=== PATIENT | male | born 2000 | race Caucasian/White ===

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

== ENCOUNTER 2021-06-13 15:14 | Outpatient (REF) | payer OTHER, SELFPAY ==
[2021-06-15 13:07] LABS: COVID-19 RT-PCR UVMMC Result Positive (Negative)
== END 2021-06-13 15:15 | disposition home or self-care (01) ==
LOC: NCHCN 15:14
PROVIDERS: PCP Physician Assistant Medical; Visit Provider Physician Assistant Medical
DX: Z20.822 Contact with and (suspected) exposure to COVID-19 (principal); J06.9 Acute upper respiratory infection, unspecified
CPT/HCPCS: U0003

== ENCOUNTER 2022-04-06 14:38 | Emergency (ER) | payer OTHER, SELFPAY ==
[2022-04-06 15:00] VITALS: BP 120/67; PULSE 71; RESP 12; TEMP 37.1; O2SAT 100
--- NOTE | 2022-04-06 15:00 | DI.US_ITS ---
Exam(s) US SCROTUM EXAM: US SCROTUM CLINICAL HISTORY: R/O Torsion TECHNIQUE: Ultrasound performed using standard protocol. COMPARISON: US LEFT BREAST ULTRASOUND {[id number]} from 03/11/2015 FINDINGS: Scrotal ultrasound was performed according to the usual protocol. Testes show normal homogeneous ech ogenicity and normal Doppler flow bilaterally. The epididymi are unremarkable in appearance. No mauri icocele identified. IMPRESSION: Negative scrotal ultrasound. DATA REPOSITORY:
--- NOTE | 2022-04-06 16:46 | ED.GENADUL_ITS ---
Discharge Plan Disposition Patient Disposition: HOME Condition: Stable Discharge Details Clinical Impression: Pain in scrotum Primary Care Provider: Ela Kumar ED Provider: Precious Hebert Home Meds and New Rx's Prescriptions: New doxycycline hyclate 100 mg tablet 100 mg PO BID 10 Days Qty: 20 0RF Discharge Instructions Additional Instructions: you received antibiotics to treat epididymitis, please follow-up with your doctor and urology, should you have persistent pain motrin/tylenol as needed for pain oxycodone is addictive, please use sparingly return with new or worsening complaints wear briefs for support refrain from heavy lifting Referrals: Ela Kumar PA [Primary Care Provider] - Discharge Data Discharge Date/Time-TO BE ENTERED AT DEPARTURE: 04/06/22 17:28 Medical Decision Making Patient has tenderness to his right testicle without significant swelling or erythema I do not feel a palpable hernia We will treat empirically for epididymitis with doxycycline and ceftriaxone He has a urine swabs are pending at this time and for gonorrhea and chlamydia although he was treated empirically with 500 mg of ceftriaxone and p.o. doxycycline for the next 10 days He is given a small amount of opiate analgesia will return immediately should he have new or worsening complaints Medical Records Medical records reviewed: Yes I reviewed the patient's medical records. Lab Data Lab results reviewed: Yes I reviewed the patient's lab results. HPI General Date/Time Provider Initiated Documentation: 04/06/22 15:13 . HPI Narrative: This 22-year-old male presents with right scrotal pain that started approximately 3 days ago. He sexually active and monogamous over the course of the past 6 months Just prior history of similar symptoms in the past or trauma to the affected area. If he has pain with ambulation. He denies any urethral discharge. He denies any flank pain, chest pain, shortness of breath. He denies any dysuria frequency. Any fever or chills denies fever or chills describes the pain as an achy Related Data Home Medications Medication Instructions Recorded Confirmed doxycycline hyclate 100 mg tablet 100 mg PO BID 10 days #20 tabs 04/06/22 Previous Rx's Medication Instructions Recorded doxycycline hyclate 100 mg tablet 100 mg PO BID 10 days #20 tabs 04/06/22 Allergies Allergy/AdvReac Type Severity Reaction Status Date / Time No Known Allergies Allergy Unverified 04/06/22 15:07 General Stated Complaint: Male Reproductive Problem JUAN: 3 Review of Systems All systems reviewed & are unremarkable except as noted in HPI and below PFSH All Active Problems (Updated 04/06/22 @ 16:50 by JOSE MANUEL Pryor) Pain in scrotum (Acute) Asymmetrical sensorineural hearing loss (Acute) Medical History Depression Hearing impairment URI, acute Social History Smoking/Tobacco Use Status: Never Smoking risk assessment performed?: Yes Alcohol Intake: never Drug use: Never Pets and animals: Yes Do you feel safe at home: Yes Do you feel safe in your relationship?: Yes Exam Const General: cooperative, comfortable and no acute distress Resp Effort & Inspection: normal respiratory effort Cardio Rate: regular rate GI Inspection: normal to inspection Other: Right testicular tenderness, no erythema, no palpable hernia, no urethral or scrotal lesions, no drainage Course Vital Signs Vital signs: Vital Signs Temperature 37.1 C 04/06/22 15:00 Pulse 71 04/06/22 15:00 Respiratory Rate 12 04/06/22 15:00 Blood Pressure 120/67 04/06/22 15:00 Pulse Oximetry 100 04/06/22 15:00 Temperature 37.1 C 04/06/22 15:00 Temperature Source Skin 04/06/22 15:00 Pulse 71 04/06/22 15:00 Respiratory Rate 12 04/06/22 15:00 Respiratory Effort 04/06/22 16:33 Blood Pressure 120/67 04/06/22 15:00 Blood Pressure Position Sitting 04/06/22 15:00 Pulse Oximetry 100 04/06/22 15:00 Oxygen Delivery Method Room Air 04/06/22 15:00 Oxygen Flow Rate 0 04/06/22 15:00 Pain Level 6 04/06/22 15:00 Comment 04/06/22 15:00
[2022-04-06 16:48] LABS: Bilirubin Negative (Negative); Blood Negative (Negative); Clarity Clear (Clear); Glucose Negative (Negative); Ketones 15 mg/dL (Negative); Leukocyte Esterase Negative (Negative); Nitrite Negative (Negative); Specific Gravity >= 1.030 (1.005-1.025); Urobilinogen 0.2 EU/dL (Up TO 0.2); pH 5.5 (5-8)
[2022-04-06] MEDS: cefTRIAXone 500 MG VIAL IM (17:08)
[2022-04-06 17:26] VITALS: PULSE 77; TEMP 37.2; O2SAT 99
[2022-04-08 13:39] LABS: Chlamydia Result Positive (Negative); GC Result Negative (Negative)
--- NOTE | 2022-04-08 13:57 | W.ED.FU ---
Date of service: 04/08/22 Time of Service: 13:57 Follow Up Plan: Critical value of positive chlamydia from sample. Patient was given ceftriaxone and doxycycline for presumed epididymitis. Lab findings conveyed to patient. Patient is taking his antibiotics appropriately and will follow up with primary care. Given return precautions to the emergency department as needed
== END 2022-04-06 17:28 | disposition home or self-care (01) ==
PROVIDERS: Emergency Provider Physician Assistant; PCP Physician Assistant Medical
DX: N50.82 Scrotal pain (principal)
CPT/HCPCS: 87491; 87591; 96372; 99284; 76870; 81003; J0696

== ENCOUNTER 2022-07-03 12:06 | Emergency (ER) | payer OTHER, SELFPAY ==
[2022-07-03 12:17] VITALS: BP 117/63; PULSE 80; RESP 16; TEMP 36.6; O2SAT 99
--- NOTE | 2022-07-03 12:37 | DI.RAD_ITS ---
Exam(s) XR FOOT LT COMPLETE EXAM: XR FOOT LT COMPLETE CLINICAL HISTORY: crush injury/pain. TECHNIQUE: 2D digital imaging was performed. Three views. COMPARISON: No exams were available for comparison FINDINGS: BONES: There is a nondisplaced fracture extending from the mid shaft of the 4th metatarsal with throu gh the base. There is no visible separation at the articular surface. No additional fractures are s een. No bony destructive lesion is seen. JOINTS: No dislocation present. SOFT TISSUE: Mild swelling over the metatarsal region. IMPRESSION: Nondisplaced fracture 4th metatarsal. DATA REPOSITORY: RADIATION DOSE DELIVERED:
--- NOTE | 2022-07-03 13:06 | ED.GENADUL_ITS ---
Discharge Plan Disposition Patient Disposition: Home Condition: Stable Discharge Details Clinical Impression: Metatarsal fracture Primary Care Provider: Ela Kumar ED Provider: Francisca Gary Home Meds and New Rx's Prescriptions: No Action No Known Home Meds Discharge Instructions Instructions: Foot Fracture in Adults (ED), Walking Boot (ED) Additional Instructions: Please return immediately to the emergency department if you develop any new or worsening symptoms, if your condition does not improve as expected, or if you become otherwise concerned. It is extremely important that you call soon as possible to make an appointment to be seen in follow-up for this visit by your primary care doctor. You will also need to follow-up with orthopedic surgery in 2 to 3 weeks as we discussed. Stand Alone Forms: Work Release Referrals: Jeremy Narvaez MD [[facility] STAFF PHYSICIAN] - Ela Kumar PA [Primary Care Provider] - Discharge Data Discharge Date/Time-TO BE ENTERED AT DEPARTURE: 07/03/22 13:38 Medical Decision Making Concern for foot fracture versus contusion. Exam/history at this time is not consistent with ankle fracture, acute pathology of the left lower extremity otherwise, other acute emergent pathology. Plan for foot x-ray. X-ray shows nondisplaced fracture of the fourth metatarsal. I discussed patient presentation results with Dr. Narvaez of orthopedic surgery, who requested either postop shoe or walking boot, weightbearing as tolerated, outpatient follow-up in 2 to 3 weeks with orthopedics. Patient with last tetanus 9 years ago, offered to give booster at this time, patient declines. Abrasion dressed with bacitracin, patient provided with walking boot and crutches for weightbearing as tolerated. I had a discussion with Patient regarding return to emergency department precautions, home care, and importance of outpatient follow-up. Pt verbalizes understanding of the plan and is amenable. Patient discharged to home with clear plan for outpatient follow-up. All questions were answered. Disposition decision was made weighing the risks and benefits of hospitalization versus outpatient treatment, the risk for further decompensation, and the patient's wishes. Medical Records Medical records reviewed: Yes I reviewed the patient's medical records. Imaging Data Radiologic Study: Attestation: I personally reviewed and interpreted this imaging study as follows: Radiologist's impression: EXAM:? XR FOOT LT COMPLETE CLINICAL HISTORY: ? crush injury/pain.? TECHNIQUE:? 2D digital imaging was performed.? Three views. COMPARISON:? No exams were available for comparison FINDINGS: BONES: There is a nondisplaced fracture extending from the mid shaft of the 4th metatarsal with through the base.? There is no visible separation at the articular surface.? No additional fractures are seen.? No bony destructive lesion is seen. JOINTS: No dislocation present. SOFT TISSUE: Mild swelling over the metatarsal region. IMPRESSION: Nondisplaced fracture 4th metatarsal. Sign Out No HPI General Mode of arrival: ambulatory . Date/Time Provider Initiated Documentation: 07/03/22 13:06 . Limitations to Documentation: no limitations . Information obtained by: patient, RN notes reviewed and old records reviewed . HPI Narrative: Tr Clayton is a 22-year-old man without reported history of medical problems presenting to the emergency department with foot pain. 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 Patient reports pain is worse on the top lateral aspect. He reports a feeling of numbness in his distal foot. He denies any other pain, any other injury. Did not fall to the ground, did not hit his head. Rock was removed rapidly by an excavator. Denies recent illness. No fever, cough, shortness of breath, vomiting, diarrhea, weakness, other numbness. Related Data Home Medications Medication Instructions Recorded Confirmed Unknown [No Known Home Meds] 07/03/22 07/03/22 Allergies Allergy/AdvReac Type Severity Reaction Status Date / Time No Known Allergies Allergy Unverified 07/03/22 12:20 General Stated Complaint: Orthopedic JUAN: 4 Review of Systems Narrative: Constitutional: denies fevers Eyes: denies eye pain ENT: denies ear pain, dental pain, sore throat Cardiovascular: denies chest pain Respiratory: denies SOB GI: denies abdominal pain, vomiting : denies flank pain MSK: denies back pain, neck pain, arthralgias, reports left foot pain Skin: denies skin wound Neuro: denies headaches, weakness, reports numbness left toes PFSH All Active Problems Metatarsal fracture (Acute) Asymmetrical sensorineural hearing loss (Acute) Medical History Depression Hearing impairment URI, acute Social History Smoking/Tobacco Use Status: Current every day Tobacco Type: smokeless tobacco Smoking risk assessment performed?: Yes Alcohol Intake: never Drug use: Never Pets and animals: Yes Do you feel safe at home: Yes Do you feel safe in your relationship?: Yes Exam Narrative Exam Narrative: Constitutional: well and [id number], pleasant, conversing normally HENT: head atraumatic/normocephalic/normal inspection, mucous membranes moist Eyes: conjunctiva normal, sclera normal, pupils 3mm b/l Neck: no stridor, normal ROM, trachea midline Resp: normal work of breathing Cardio: normal rate, normal rhythm Skin: warm, dry, normal color, no rash Neuro: alert, not altered, grossly non-focal, normal tone Ext: Left foot with superficial abrasion over proximal dorsal area, tenderness to palpation over dorsal lateral aspect of the foot, ranging all toes with minimal pain, sensation intact distal foot/toes, able to range ankle fully with minimal pain, no ankle tenderness palpation Psych: normal mood, normal affect, normal behavior Course Vital Signs Vital signs: Vital Signs Temperature 36.6 C 07/03/22 12:17 Pulse 80 07/03/22 12:17 Respiratory Rate 16 07/03/22 12:17 Blood Pressure 117/63 07/03/22 12:17 Pulse Oximetry 99 07/03/22 12:17 Temperature 36.6 C 07/03/22 12:17 Temperature Source Skin 07/03/22 12:17 Pulse 80 07/03/22 12:17 Respiratory Rate 16 07/03/22 12:17 Respiratory Effort Non-Labored 07/03/22 12:20 Blood Pressure 117/63 07/03/22 12:17 Blood Pressure Position Sitting 07/03/22 12:17 Pulse Oximetry 99 07/03/22 12:17 Oxygen Delivery Method Room Air 07/03/22 12:17 Oxygen Flow Rate 0 07/03/22 12:17 Pain Level 7 07/03/22 12:17
== END 2022-07-03 13:38 | disposition home or self-care (01) ==
PROVIDERS: Emergency Provider Student in an Organized Health Care Education/Training Program; PCP Physician Assistant Medical
DX: S92.345A Nondisplaced fracture of fourth metatarsal bone, left foot, initial encounter for closed fracture (principal); W23.0XXA Caught, crushed, jammed, or pinched between moving objects, initial encounter
CPT/HCPCS: 29515; 99283; 73630

== ENCOUNTER → 2023-09-25 01:20 | Outpatient (CLI) | payer OTHER, SELFPAY ==
--- NOTE | 2023-09-25 07:30 | DI.MRI_ITS ---
Exam(s) MR IAC BRAIN WO/W EXAM: MR IAC BRAIN WO/W CLINICAL HISTORY: Asymmetrical hearing loss, tinnitus,h90.3,h93.19. TECHNIQUE: Multiplanar multisequence MRI of the brain and internal auditory canals was performed. CONTRAST MATERIAL: IV Contrast: 16 mL of Dotarem contrast administered. COMPARISON: No exams were available for comparison FINDINGS: VENTRICLES AND EXTRA AXIAL SPACES: Normal in size and morphology for the patient's age. HEMORRHAGE: None. CEREBRAL PARENCHYMA: No focus of restricted diffusion to suggest acute infarct. No space-occupying le sergey identified. Nonspecific mild hyperintense T2 signal is seen in the medial aspect of the right oc cipital lobe. No abnormal enhancement or mass effect is seen. MIDLINE SHIFT: None. BRAINSTEM/CEREBELLUM: Normal. CALVARIUM: Normal. ENHANCEMENT: No suspicious enhancement identified. VISUALIZED PARANASAL SINUSES/MASTOIDS: Clear. P[place] K[place]Z: Normal flow void. PITUITARY GLAND: Unremarkable. IAC/CP ANGLE: The internal auditory canals are within normal limits. The cerebellar pontine angles ar e unremarkable. No enhancing lesions are seen. Visualized portion of the facial nerves appear within normal limits. OTHER FINDINGS: None. IMPRESSION: 1. No evidence of an intracranial mass, enhancing lesion or infarct. 2. No evidence of a mass is seen in the internal auditory canals or cerebellopontine angles. 3. Nonspecific hyperintense T2 signal seen in the medial aspect of the right occipital lobe. This ana luisa ws no enhancement. Follow-up examination in 6 months is recommended for re-evaluation. DATA REPOSITORY:
[2023-09-25] MEDS: Normal Saline Flush 10 ML SYR IVP (12:51)
[2023-09-25] MEDS: Gadoterate meglumine 20 ML SYRINGE 16 ML IVP (12:53)
== END ==
PROVIDERS: Visit Provider Registered Nurse Maternal Newborn
DX: H90.3 Sensorineural hearing loss, bilateral (principal); H93.19 Tinnitus, unspecified ear
CPT/HCPCS: 70553

== ENCOUNTER 2024-01-22 16:17 | Outpatient (REF) | payer OTHER, SELFPAY ==
[2024-01-24 15:44] LABS: Chlamydia Result Negative (Negative); GC Result Negative (Negative)
== END 2024-01-22 16:18 | disposition home or self-care (01) ==
LOC: LBN 16:17
PROVIDERS: Visit Provider Physician Assistant
DX: N39.0 Urinary tract infection, site not specified (principal); Z11.3 Encounter for screening for infections with a predominantly sexual mode of transmission
CPT/HCPCS: 87491; 87591; 87086

== ENCOUNTER 2024-04-04 00:20 | Outpatient (CLI) | payer OTHER, SELFPAY ==
--- OUTSIDE RECORDS SUMMARY | 2024-04-04 00:37 | XMS_ITS | Clinical Summary ---
Author Organization [facility] [place] [address] Care Team Providers Care Mineral Mixer Name Role Phone Ela Kumar Primary Care Provider [phone] Allergies No known active allergies Medications Medication Sig Dispensed Refills Start Date End Date Status FLUoxetine (PROZAC) 20 mg Capsule 5 06/04/2018 Active multivitamin Tablet, Chewable Take by mouth. Active Social History Tobacco Use Types Packs/Day Years Used Date Smoking Tobacco: Never Smokeless Tobacco: Never Sex and Gender Information Value Date Recorded Sex Assigned at Not on file Gender Identity Not on file Sexual Orientation Not on file Last Filed Vital Signs Vital Sign Reading Time Taken Comments Blood Pressure 120/64 09/12/2018 2:25 PM EST Pulse 57 09/12/2018 2:25 PM EST Temperature - - Respiratory Rate 18 09/12/2018 2:25 PM EST Oxygen Saturation - - Inhaled Oxygen Concentration - - Weight 74.6 kg (164 lb 6.4 oz) 09/12/2018 2:25 P M EST Height 190.5 cm (6' 3) 09/12/2018 2:25 PM EST Body Mass Index 20.55 09/12/2018 2:25 PM EST Plan of Treatment Health Maintenance Due Date Last Done Comments HPV vaccine (1 - Male 3-dose series) 02/16/2016 HIV screen 2019 Hepatitis C Screening 2019 Hepatitis B vaccine (0-59 yrs) (1) 02/16/2020 Tdap adult 02/16/2020 Tetanus vaccine 02/16/2020 Covid-19 Vaccine (1 - 2022-24 season) 2023 Influenza (Flu) vaccine (1 o f 1 - Influenza standard series) 04/13/2024 Care Teams Mineral Mixer Relationship Specialty Start Date End Date Ela Kumar PA [address] [place], [place] [id number] PCP - General Family Medicine 10/23/23
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
--- OUTSIDE RECORDS SUMMARY | 2024-04-04 00:37 | XMS_ITS | Encounter Summary ---
[place] [address] Care Team Providers Care Straight Cutter Machine Name Role Phone Ela Kumar Primary Care Provider [phone]- [phone] Reason for Referral * Consultation (Routine) - Closed Specialty Diagnoses / Procedures Referred By Malvin cox Referred To Contact Neurology Diagnoses Abnormal findings on diagnostic imaging of other specified body structures Tinnitus, bilateral Sensorineural hearing loss, bilateral 23 yo male with abnormal finding on MRI, completed at [facility]. MRI was completed for asymmetrical sensorineural hearing loss and high-pitched, nonpulsatile tinnitus. Has had a significant hx of noise exposure. Normal MRI from ENT standpoint. Candis Navarrete APRN [address] [place] [address] [place] [address] [facility] [address] [place] [phone] Referral ID Status Reason Start Date Expiration Date V isits Requested Visits Authorized [id number] Closed Consult, Test & Treat PCP Updated and/or Approved 10/17/2023 04/18/2024 6 6 Encounter Details Date Type Department Care Team (Late st Contact Info) Description 10/23/2023 Transcribe Orders eDH Incoming Referrals [phone] Candis Navarrete APRN [address] [place] [address] [address] [place] [phone] Abnormal findings on diagnostic imaging of other specified body structures; Tinnitus, bilateral; Sensorineural hearing loss, bilateral Social History Tobacco Use Types Packs/Day Years Used Date Smoking Tobacco: Never Smokeless Tobacco: Never Sex and Gender Information Value Date Recorded Sex Assigned at Not on file Gender Identity Not on file Sexual Orientation Not on file documented as of this encounter Plan of Treatment Scheduled Referrals Name Type Priority Associated Diagnoses Orde r Schedule Referral to Neurology Outpatient Referral Routine Abnormal findings on diagnostic imaging of other specified body structures Tinnitus, bilateral Sensorineural hearing loss, bilateral Ordered: 10/23/2023 documented as of this encounter Visit Diagnoses Diagnosis Abnormal findings on diagnostic imaging of other specified body structures Tinnitus, bilateral Unspecified tinnitus Sensorineural hearing loss, bilateral documented in this encounter Care Teams Straight Cutter Machine Relationship Specialty Start Date End Date Ela Kumar PA [address] [place] [address] PCP - General Family Medicine 10/23/23 documented as of this encounter
--- NOTE | 2024-04-04 06:45 | DI.MRI_ITS ---
Exam(s) MR BRAIN WO EXAM: MR BRAIN WO CLINICAL HISTORY: ??R occipital lesion,abnl mri, R93.89,6 MO F/U EXAM. TECHNIQUE: Multiplanar multisequence MRI of the brain was performed. CONTRAST MATERIAL: Noncontrast COMPARISON: MR MR IAC BRAIN WO/W from 09/25/2023 FINDINGS: VENTRICLES AND EXTRA AXIAL SPACES: Normal in size and morphology for the patient's age. HEMORRHAGE: None. CEREBRAL PARENCHYMA: No focus of restricted diffusion to suggest acute infarct. Dense of mass. Stabl e appearance of somewhat linear area of high signal in the right parietal occipital white matter. No associated restricted diffusion or hemorrhage. Previous exam showed no evidence of enhancement. No additional findings in the brain. MIDLINE SHIFT: None. BRAINSTEM/CEREBELLUM: Normal. CALVARIUM: Normal. ENHANCEMENT: No suspicious enhancement identified. VISUALIZED PARANASAL SINUSES/MASTOIDS: Clear. Orbits: Unremarkable. Pituitary: Normal. Vasculature: Normal flow voids. IMPRESSION: Stable appearance of somewhat linear area of high signal in the right except middle parietal region. DATA REPOSITORY:
== END 2024-04-04 00:40 ==
LOC: DI 00:20
PROVIDERS: Visit Provider Psychiatry & Neurology Neurology
DX: R93.89 Abnormal findings on diagnostic imaging of other specified body structures (principal)
CPT/HCPCS: 70551

== ENCOUNTER 2024-06-27 04:07 | Emergency (ER) | payer OTHER, SELFPAY ==
[2024-06-27 04:01] VITALS: BP 114/75; PULSE 95; RESP 18; O2SAT 99
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
[2024-06-27 05:01] VITALS: TEMP 36.9
[2024-06-27] MEDS: Diph,Pertuss(Acell),Tet Vac/Pf 0.5 ML SYR IM (05:03)
[2024-06-27 05:09] VITALS: BP 123/81; PULSE 74; RESP 16; O2SAT 98
--- NOTE | 2024-06-27 05:32 | DI.VRAD_ITS ---
PROCEDURE INFORMATION: Exam: XR Right Hand Exam date and time: 06/27/2024 4:31 AM Age: 24 years old Clinical indication: Pain and injury or trauma; Other: Crush injury, pain; Blunt trauma (contusions or hematomas); Hand; Right TECHNIQUE: Imaging protocol: Radiologic exam of the right hand. Views: 3 or more views. COMPARISON: No relevant prior studies available. FINDINGS: Bones/joints: Normal. Soft tissues: Normal. IMPRESSION: No acute findings. Dictated and Authenticated by: Edilberto Zurita MD. Ordering:MARISOL Espinoza MD
--- NOTE | 2024-06-30 17:18 | NUR.NOTE ---
Accessed chart to get the discharge diagnosis for [facility] paperwork. Nursing Note:
== END 2024-06-27 05:09 | disposition home or self-care (01) ==
PROVIDERS: Emergency Provider Emergency Medicine Emergency Medical Services
DX: S61.411A Laceration without foreign body of right hand, initial encounter (principal); W20.8XXA Other cause of strike by thrown, projected or falling object, initial encounter
CPT/HCPCS: 90471; 90715; 99283; 73130